=== PATIENT | male | born 1965 | race Caucasian/White ===

== ENCOUNTER 2021-07-14 22:37 | Emergency (ER) | payer SELFPAY ==
[~2021-07-14] VITALS: Ht 170.2 cm; Wt 77.1 kg
[2021-07-14 22:37] VITALS: BP_SYST 142
--- NOTE | 2021-07-14 22:37 | NUR ---
Pt BIB BLS, placed to ER bed 05. Pt homeless, found laying on ground next to a laudry mat. Homeless friends called 911 r/t witnessed seizure activity. Pt arrives AAOx4, coherent speech, denies c/o pain or discomfort, denies hitting head.
--- NOTE | 2021-07-14 22:40 | NUR ---
Dr. Leon at bedside to assess pt.
[2021-07-14] MEDS ORDERED: LORazepam 1 MG TABLET PO ONE (22:45)
--- NOTE | 2021-07-15 00:11 | NUR ---
Warm blankets provided.
--- NOTE | 2021-07-15 02:12 | NUR ---
Patient given written and verbal discharge instructions and verbalizes understanding. ER MD discussed with patient the results and treatment provided. Patient in stable condition. ID arm band removed. No Rx given. Patient educated on pain management and to follow up with PMD. Pain Scale 0/10. Opportunity for questions provided and answered. Medication side effect fact sheet provided. Pt discharge to ER waiting room in stable condition.
--- NOTE | 2021-07-15 09:25 | NUR ---
REPORTED PT. WAS DISCHARGED ON PM SHIFT, REMAINED IN BED TO COURTESY TO SLEEP.
[2021-07-15 09:50] VITALS: BP_SYST 142
--- NOTE | 2021-07-15 09:50 | NUR ---
DISCHARGED BY WENCESLAO BERRY RN
--- NOTE | 2021-07-17 02:12 | NUR ---
Note vereniceone in EDM - 07/17/21 at 1839 by LANEY Patient given written and verbal discharge instructions and verbalizes understanding. ER MD discussed with patient the results and treatment provided. Patient in stable condition. ID arm band removed. No Rx given. Patient educated on pain management and to follow up with PMD. Pain Scale 0/10. Opportunity for questions provided and answered. Medication side effect fact sheet provided. Pt discharge to ER waiting room in stable condition.
== END 2021-07-15 09:50 | disposition home or self-care (01) ==
LOC: SED 22:37
DX: F10.231 Alcohol dependence with withdrawal delirium (principal); R56.9 Unspecified convulsions; Y90.9 Presence of alcohol in blood, level not specified
CPT/HCPCS: 82962; 99283